=== PATIENT | male | born 1985 | race Caucasian/White ===

== ENCOUNTER 2022-10-12 18:31 | Emergency (ER) | payer OTHER ==
[2022-10-12 18:41] VITALS: TEMP 97.8
--- NOTE | 2022-10-12 19:55 | ED ---
Overdose HPI - General Chief Complaint: Overdose Stated Complaint: AMS Time Seen by Provider: 10/12/22 19:01 Source: patient, EMS, RN notes reviewed Mode of arrival: EMS Limitations: altered mental status - History of Present Illness Initial Comments: 37-year-old male here by EMS from his nursing home house to be evaluated for altered mental status and Ryland's. Patient reportedly took Klonopin unknown exactly how much she also possibly methamphetamine. No fevers chills nausea vomiting sweats no cough reported, reported. MD Complaint: other Review of Systems ROS Statement: Those systems with pertinent positive or pertinent negative responses have been documented in the HPI. ROS Other: All systems not noted in ROS Statement are negative. Limitations: ROS unobtainable due to patients medical condition General Exam - General Exam Comments Initial Comments: This is a well-developed well-nourished awake alert but lethargic male Limitations: altered mental status General appearance: alert, in no apparent distress, lethargic Head exam: Present: atraumatic, normocephalic, normal inspection Eye exam: Present: normal appearance, PERRL, EOMI. Absent: scleral icterus, conjunctival injection, periorbital swelling ENT exam: Present: normal exam, mucous membranes moist Neck exam: Present: normal inspection, full ROM, other. Absent: tenderness, meningismus, lymphadenopathy Respiratory exam: Present: normal lung sounds bilaterally. Absent: respiratory distress, wheezes, rales, rhonchi, stridor Cardiovascular Exam: Present: regular rate, normal rhythm, normal heart sounds. Absent: systolic murmur, diastolic murmur, rubs, gallop, clicks GI/Abdominal exam: Present: soft, normal bowel sounds. Absent: distended, tenderness, guarding, rebound, rigid Extremities exam: Present: normal inspection, full ROM, normal capillary refill. Absent: tenderness, pedal edema, joint swelling, calf tenderness Back exam: Present: normal inspection Neurological exam: Present: alert, oriented X3, CN II-XII intact Psychiatric exam: Present: normal affect, normal mood Skin exam: Present: warm, dry, intact, normal color. Absent: rash Course Vital Signs 10/12/22 18:32 Temperature 97.8 F Pulse Rate 83 Respiratory 18 Rate Blood Pressure 120/85 O2 Sat by Pulse 94 L Oximetry - Reevaluation(s) Reevaluation #1: 10/12/22 22:23 Reevaluation patient reveals he is awake and alert he denies any suicidal thought or ideation Medical Decision Making - Medical Decision Making Patient is awake and alert on my reevaluation. Patient denies any thoughts of harming himself he does admit he actually took some extra medications tonight. Be discharged Was pt. sent in by a medical professional or institution? @ No S paramedics upon arrival-[by , KANU, ROAD MACHINERY INSPECTOR, urgent care, hospital, or residential] Did you speak to anyone other than the patient for history? @ -[EMS, parent, family, police, friend?] Did you review nursing and triage notes? @ Yes I agree-[agree or disagree, why?] Were old charts reviewed? @ No -[outside hosp., previous admissions, EMS record, old EKG, old radiological studies, urgent care reports/EKGs, residential records?] Differential Diagnosis? @ Overdose considered no evidence of trauma-[chest pain, altered mental status abdominal pain women, abdominal pain men, vaginal bleeding, weakness, fever, dyspnea, syncope, headache, dizziness, GI bleed, back pain, seizure] EKG interpreted by me (3pts min.)? @ Yes-[none] X-rays interpreted by me (1pt min.)? @ -[none] CT interpreted by me (1pt min.)? @ -[none] U/S interpreted by me (1pt. min.)? @ -[none] What testing was considered but not performed? (CT, X-rays, U/S, labs)? Why? @ No [CT, X-rays, U/S, labs? Why?] What meds were considered but not given? Why? @ -[none] Did you discuss the management of the patient with other professionals? @ No-[professionals i.e. KANU Hoyt, ROAD MACHINERY INSPECTOR, Lab, RT, Psych Nurse, Manufacturing Intern, Vein Pumper, Teacher, Spinning Machine Operator, egg caser? Give summary] Did you reconcile home meds? @ -[none] Was smoking cessation discussed for >3mins.? @ -[none] Was critical care preformed (if so, how long)? @ -[none] Were there social determinants of health that impacted care today? How? (Home lessness, low income, unemployed, alcoholism, drug addiction, transportation, low edu. Level, literacy, decrease access to med. care, prison, rehab)? @ -[Homelessness, low income, unemployed, alcoholism, drug addiction, transportation, low edu. Level, literacy, decrease access to med. care, prison, rehab?] Was there de-escalation of care discussed even if they declined? (Discuss DNR or withdrawal of care, Hospice)? @ -[Discuss DNR or withdrawal of care, Hospice?] What co-morbidities impacted this encounter? (DM, HTN, Smoking, COPD, CAD, Cancer, CVA, Hep., AIDS, mental health diagnosis, sleep apnea, morbid obesity)? @ -[DM, HTN, Smoking, COPD, CAD, Cancer, CVA, Hep., AIDS, mental health diagnosis, sleep apnea, morbid obesity?] Was patient admitted / discharged? @ Discharged -[hospital course] Undiagnosed new problem with uncertain prognosis? @ -[none] Drug Therapy requiring intensive monitoring for toxicity (Heparin, Nitro, Insulin, Cardizem)? @ -[none] Were any procedures done? @ -[none] Diagnosis/symptom? @ Accidental Medication Overdose-[default] Acute, or Chronic, or Acute on Chronic? @ Acute-[default] Uncomplicated (without systemic symptoms) or Complicated (systemic symptoms)? @ -[default] Side effects of treatment? @ -[none] Exacerbation, Progression, or Severe Exacerbation] @ -[no] Poses a threat to life or bodily function? @ -[no] - Lab Data Result diagrams: 10/12/22 19:41 10/12/22 19:41 Lab Results 10/12/22 10/12/22 10/12/22 Range/Units 19:41 19:41 19:41 WBC 9.5 (3.8-10.6) k/uL RBC 4.16 L (4.30-5.90) m/uL Hgb 12.9 L (13.0-17.5) gm/dL Hct 37.1 L (39.0-53.0) % MCV 89.1 (80.0-100.0) fL MCH 31.1 (25.0-35.0) pg MCHC 34.9 (31.0-37.0) g/dL RDW 13.4 (11.5-15.5) % Plt Count 205 (150-450) k/uL MPV 8.3 Neutrophils % 76 % Lymphocytes % 16 % Monocytes % 5 % Eosinophils % 2 % Basophils % 0 % Neutrophils # 7.2 (1.3-7.7) k/uL Lymphocytes # 1.5 (1.0-4.8) k/uL Monocytes # 0.4 (0-1.0) k/uL Eosinophils # 0.2 (0-0.7) k/uL Basophils # 0.0 (0-0.2) k/uL PT 9.6 (9.0-12.0) sec INR 0.9 (<1.2) Sodium 138 (137-145) mmol/L Potassium 4.3 (3.5-5.1) mmol/L Chloride 105 (98-107) mmol/L Carbon Dioxide 25 (22-30) mmol/L Anion Gap 8 mmol/L BUN 26 H (9-20) mg/dL Creatinine 0.95 (0.66-1.25) mg/dL Est GFR (CKD-EPI)AfAm >90 (>60 ml/min/1.73 sqM) Est GFR (CKD-EPI)NonAf >90 (>60 ml/min/1.73 sqM) Glucose 84 (74-99) mg/dL Plasma Lactic Acid Tirso (0.7-2.0) mmol/L Calcium 8.7 (8.4-10.2) mg/dL Total Bilirubin 1.0 (0.2-1.3) mg/dL AST 107 H (17-59) U/L ALT 35 (4-49) U/L Alkaline Phosphatase 89 (38-126) U/L Troponin I (0.000-0.034) ng/mL Total Protein 6.6 (6.3-8.2) g/dL Albumin 4.0 (3.5-5.0) g/dL Lipase 53 (23-300) U/L Salicylates 2.2 mg/dL Acetaminophen <10.0 ug/mL Serum Alcohol <10 mg/dL 10/12/22 10/12/22 Range/Units 19:41 19:41 WBC (3.8-10.6) k/uL RBC (4.30-5.90) m/uL Hgb (13.0-17.5) gm/dL Hct (39.0-53.0) % MCV (80.0-100.0) fL MCH (25.0-35.0) pg MCHC (31.0-37.0) g/dL RDW (11.5-15.5) % Plt Count (150-450) k/uL MPV Neutrophils % % Lymphocytes % % Monocytes % % Eosinophils % % Basophils % % Neutrophils # (1.3-7.7) k/uL Lymphocytes # (1.0-4.8) k/uL Monocytes # (0-1.0) k/uL Eosinophils # (0-0.7) k/uL Basophils # (0-0.2) k/uL PT (9.0-12.0) sec INR (<1.2) Sodium (137-145) mmol/L Potassium (3.5-5.1) mmol/L Chloride (98-107) mmol/L Carbon Dioxide (22-30) mmol/L Anion Gap mmol/L BUN (9-20) mg/dL Creatinine (0.66-1.25) mg/dL Est GFR (CKD-EPI)AfAm (>60 ml/min/1.73 sqM) Est GFR (CKD-EPI)NonAf (>60 ml/min/1.73 sqM) Glucose (74-99) mg/dL Plasma Lactic Acid Tirso 0.7 (0.7-2.0) mmol/L Calcium (8.4-10.2) mg/dL Total Bilirubin (0.2-1.3) mg/dL AST (17-59) U/L ALT (4-49) U/L Alkaline Phosphatase (38-126) U/L Troponin I <0.012 (0.000-0.034) ng/mL Total Protein (6.3-8.2) g/dL Albumin (3.5-5.0) g/dL Lipase (23-300) U/L Salicylates mg/dL Acetaminophen ug/mL Serum Alcohol mg/dL - EKG Data -: EKG Interpreted by Me EKG Comments: EKG interpreted by me at the time of treatment we'll sinus rhythm a 71 appear interval 144 QRS duration 92 QT since QTC 432/469 moderate voltage criteria for LVH Disposition Clinical Impression: Accidental drug overdose Disposition: HOME SELF-CARE Condition: Good Instructions (If sedation given, give patient instructions): Adult Overdose (ED) Is patient prescribed a controlled substance at d/c from ED?: No Referrals: None,Stated [Primary Care Provider] - 1-2 days Decision Date: 10/12/22 Decision Time: 22:26
[2022-10-12 20:21] LABS: Basophils % (A) 0 %; Eosinophils # (A) 0.2 k/uL (0-0.7); Eosinophils % (A) 2 %; HCT 37.1 % (39.0-53.0); HGB 12.9 gm/dL (13.0-17.5); Lymphocytes # (A) 1.5 k/uL (1.0-4.8); Lymphocytes % (A) 16 %; MCH 31.1 pg (25.0-35.0); MCHC 34.9 g/dL (31.0-37.0); MCV 89.1 fL (80.0-100.0); Mean Platelet Volume 8.3; Monocytes # (A) 0.4 k/uL (0-1.0); Monocytes % (A) 5 %; Neutrophils # (A) 7.2 k/uL (1.3-7.7); Neutrophils % (A) 76 %; Platelet Count 205 k/uL (150-450); RBC 4.16 m/uL (4.30-5.90); RDW 13.4 % (11.5-15.5); WBC 9.5 k/uL (3.8-10.6)
[2022-10-12 20:30] LABS: INR 0.9 (<1.2); Prothrombin Time 9.6 sec (9.0-12.0)
[2022-10-12 20:48] LABS: ALT 35 U/L (4-49); AST 107 U/L (17-59); Acetaminophen <10.0 ug/mL; African American GFR (CKD) >90 (>60 ml/min/1.73 sqM); Alcohol <10 mg/dL; Alkaline Phosphatase 89 U/L (38-126); Anion Gap 8 mmol/L; Blood Urea Nitrogen 26 mg/dL (9-20); Calcium 8.7 mg/dL (8.4-10.2); Carbon Dioxide 25 mmol/L (22-30); Chloride 105 mmol/L (98-107); Glucose 84 mg/dL (74-99); Lipase 53 U/L (23-300); Non-African American GFR(CKD) >90 (>60 ml/min/1.73 sqM); Potassium 4.3 mmol/L (3.5-5.1); Salicylate 2.2 mg/dL; Sodium 138 mmol/L (137-145); Total Protein 6.6 g/dL (6.3-8.2)
[2022-10-12] MEDS ORDERED: LIDOCAINE VISCOUS 2% 15 ML CUP MUCOUS MEM ONE (22:52)
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
[2022-10-12 23:11] VITALS: BP 114/80; PULSE 80; RESP 18
== END 2022-10-12 23:11 | disposition home or self-care (01) ==
LOC: EC 18:31
DX: T65.91XA Toxic effect of unspecified substance, accidental (unintentional), initial encounter (principal)
CPT/HCPCS: 82075; 93005; 80053; 83605; 83690; 84484; 85025; 85610; 80143; 80179; 99284; G0480; 36415; 80320

== ENCOUNTER 2022-11-11 16:52 | Emergency (ER) | payer OTHER ==
--- NOTE | 2022-11-11 17:44 | ED ---
General Adult HPI - General Source: patient, RN notes reviewed Mode of arrival: ambulatory Limitations: no limitations <Pat Grossman - Last Filed: 11/11/22 17:45> - General Source: patient, RN notes reviewed <Vilma Macedo - Last Filed: 11/11/22 20:30> - General Chief complaint: Upper Respiratory Infection Stated complaint: URI,NVD Time Seen by Provider: 11/11/22 17:42 - History of Present Illness Initial comments: Patient is a 37-year-old male who presents with a chief complaint of cough. It started 1 week ago. It is mostly dry with intermittent green phlegm. No improvement. No chest pain or shortness of breath. Today patient felt nauseous with 3 episodes of vomiting, nonbloody. Reports body aches. No fever, chills, other upper respiratory symptoms, abdominal pain, diarrhea. No recent sick contacts. No history of asthma or COPD. Patient quit smoking tobacco 1 week ago. He has a 7.5 pack year history. (Pat Grossman) Patient is a 37-year-old male presenting to the emergency room with complaints of cough and congestion ongoing for approximately 1 week and developed nausea and vomiting today. He states that he has occasional body aches and sweating but denies any known fevers. He denies any chest pain, shortness of breath, abdominal pain, diarrhea, headache, dizziness or other complaints or concerns. He doesn't past medical history significant for hypertension but is not taking any medications on a regular basis. He reports that he has not taken any [id number] medication to treat his symptoms today or in the previous week. (Vilma Macedo) - Related Data Allergies Allergy/AdvReac Type Severity Reaction Status Date / Time No Known Allergies Allergy Verified 11/11/22 16:57 Review of Systems ROS Other: All systems not noted in ROS Statement are negative. <Pat Grossman - Last Filed: 11/11/22 17:45> ROS Other: All systems not noted in ROS Statement are negative. <Vilma Macedo - Last Filed: 11/11/22 20:30> ROS Statement: Those systems with pertinent positive or pertinent negative responses have been documented in the HPI. Past Medical History Past Medical History: Hypertension History of Any Multi-Drug Resistant Organisms: None Reported Past Surgical History: No Surgical Hx Reported Past Psychological History: No Psychological Hx Reported Smoking Status: Current every day smoker Past Alcohol Use History: None Reported Past Drug Use History: None Reported <Pat Grossman - Last Filed: 11/11/22 17:45> General Exam Limitations: no limitations <Gregory Grossmanna - Last Filed: 11/11/22 17:45> <Vilma Macedo - Last Filed: 11/11/22 20:30> - General Exam Comments Initial Comments: GENERAL: No acute distress, well developed, well nourished. HEENT: Normocephalic, atraumatic. Pupils equal, round, reactive to light. Moist mucous membranes. LUNGS: No respiratory distress. Clear to auscultation, no adventitious sounds, no use of accessory muscles. HEART: Regular rate and rhythm without murmur, rub, or gallop. ABDOMEN: Normal bowel sounds. Soft, non-tender, non-distended. BACK: Normal inspection. EXTREMITIES: No edema. No tenderness. Moves all extremities. NEUROLOGIC: Alert & oriented x 3. CN II-XII grossly intact. PSYCHIATRIC: Normal affect and behavior. DERMATOLOGIC: Skin intact, without rashes or lesions noted. (Vilma Macedo) Course Vital Signs 11/11/22 11/11/22 11/11/22 16:54 19:26 19:40 Temperature 98.3 F 97.8 F Pulse Rate 93 91 Respiratory 16 18 18 Rate Blood Pressure 136/93 134/90 O2 Sat by Pulse 98 97 Oximetry Medical Decision Making - Radiology Data Radiology results: report reviewed, image reviewed <Vilma Macedo - Last Filed: 11/11/22 20:30> - Medical Decision Making Was pt. sent in by a medical professional or institution (, PA, PIPEFITTER WELDER, urgent care, hospital, or alf...) When possible be specific @ -No Did you speak to anyone other than the patient for history (EMS, parent, family, police, friend...)? What history was obtained from this source @ -No Did you review nursing and triage notes (agree or disagree)? Why? @ -I reviewed and agree with nursing and triage notes except patient reports symptoms ongoing for approximately 1 week with the addition of nausea and vomiting today. Were old charts reviewed (outside hosp., previous admission, EMS record, old EKG, old radiological studies, urgent care reports/EKG's, alf records)? Report findings @ -No old charts were reviewed Differential Diagnosis (chest pain, altered mental status, abdominal pain women, abdominal pain men, vaginal bleeding, weakness, fever, dyspnea, syncope, headache, dizziness, GI bleed, back pain, seizure, CVA, palpatations, mental health)? @ -Differential Upper respiratory symptoms: Pneumonia, viral URI, bronchitis, otitis, sinusitis, streptococcal pharyngitis, mononucleosis, peritonsillar Abscess, retropharyngeal Abscess, epiglottitis, this is not meant to be an all-inclusive list. EKG interpreted by me (3pts min.). @ -None done X-rays interpreted by me (1pt min.). @ -Chest x-ray 2 view heart size normal, lungs clear no evidence of infiltrates or consolidation. No acute cardiopulmonary process. CT interpreted by me (1pt min.). @ -None done U/S interpreted by me (1pt. min.). @ -None done What testing was considered but not performed or refused? (CT, X-rays, U/S, labs)? Why? @ -None What meds were considered but not given or refused? Why? @ -None Did you discuss the management of the patient with other professionals ( professionals i.e. , PA, PIPEFITTER WELDER, lab, RT, psych nurse, social scientist, cotton tipper, teacher, global safety officer, pillowcase maker)? Give summary @ -No Was smoking cessation discussed for >3mins.? @ -No Was critical care preformed (if so, how long)? @ -No Were there social determinants of health that impacted care today? How? (Homelessness, low income, unemployed, alcoholism, drug addiction, transportation, low edu. Level, literacy, decrease access to med. care, long-term, rehab)? @ -No Was there de-escalation of care discussed even if they declined (Discuss DNR or withdrawal of care, Hospice)? DNR status @ -No What co-morbidities impacted this encounter? (DM, HTN, Smoking, COPD, CAD, Cancer, CVA, ARF, Chemo, Hep., AIDS, mental health diagnosis, sleep apnea, morbid obesity)? @ -Recently quit smoking Was patient admitted / discharged? Hospital course, mention meds given and route, prescriptions, significant lab abnormalities, going to OR and other pertinent info. @ -37-year-old male presenting to the emergency room with cough and congestion ongoing for 1 week and nausea vomiting ongoing for 1 day without known sick exposure. He is hemodynamically stable. No fever, no tachycardia and no tachypnea vital signs within normal limits. Chest x-ray and viral swab for COVID, influenza and RSV ordered by triaging provider. Chest x-ray demonstrates no acute cardiopulmonary disease. No indication for other diagnostic imaging or laboratory studies will await viral swabs. Advised that with the symptoms ongoing for 1 week if negative for viral etiology will give antibiotics. Swab positive for influenza A and RSV. No indication for further diagnostic imaging or laboratory studies. Onset of symptoms greater than 48 hours not a candidate for Tamiflu. Symptomatic management reviewed with patient including the use of decongestants and cough suppressants for cough and congestion along with Tylenol or fever [id number] as needed for fevers or body aches. Advised wll keep off work for 48 hours. Return parameters to the emergency room discussed at length. Questions and concerns answered. Will discharge home in stable condition with symptomatic management for influenza A and RSV. Undiagnosed new problem with uncertain prognosis? @ -No Drug Therapy requiring intensive monitoring for toxicity (Heparin, Nitro, Insulin, Cardizem)? @ -No Were any procedures done? @ -No Diagnosis/symptom? @ -RSV Acute, or Chronic, or Acute on Chronic? @ -Acute Uncomplicated (without systemic symptoms) or Complicated (systemic symptoms)? @ -Uncomplicated Side effects of treatment? @ -No Exacerbation, Progression, or Severe Exacerbation? @ -No Poses a threat to life or bodily function? How? (Chest pain, [place], [place], pneumonia, PE, COPD, DKA, ARF, appy, cholecystitis, CVA, Diverticulitis, Homicidal, Suicidal, threat to staff... and all critical care pts) @ -No Diagnosis/symptom? @ -Influenza A Acute, or Chronic, or Acute on Chronic? @ -Acute Uncomplicated (without systemic symptoms) or Complicated (systemic symptoms)? @ -Uncomplicated Side effects of treatment? @ -none Exacerbation, Progression, or Severe Exacerbation] @ -no Poses a threat to life or bodily function? @ -no Case discussed with Dr. Samayoa. ([facility]) - Lab Data Lab Results 11/11/22 Range/Units 17:45 Influenza Type A (PCR) Detected A (Not Detectd) Influenza Type B (PCR) Not Detected (Not Detectd) RSV (PCR) Detected A (Not Detectd) SARS-CoV-2 (PCR) Not Detected (Not Detectd) Disposition <NgocPat - Last Filed: 11/11/22 17:45> Is patient prescribed a controlled substance at d/c from ED?: No Time of Disposition: 20:21 <Vilma Macedo - Last Filed: 11/11/22 20:30> Clinical Impression: Influenza, Acute upper respiratory infection, RSV (respiratory syncytial virus infection) Disposition: HOME SELF-CARE Condition: Stable Instructions (If sedation given, give patient instructions): Respiratory Syncytial Virus (ED), Influenza (ED), Upper Respiratory Infection (ED) Additional Instructions: Please avoid contact with others if contact is needed please utilize a mask. May return to work in 48 hours if fever free. Good hydration encouraged. Utilize [id number] medications to treat symptoms including decongestants for cough and congestion and Tylenol or ibuprofen for fevers or pain. Please follow-up with your primary care provider. Please return to the Emergency Department if symptoms worsen or any other concerns. Referrals: None,Stated [Primary Care Provider] - 1-2 days
--- NOTE | 2022-11-11 18:34 | XR ---
EXAMINATION TYPE: XR chest 2V DATE OF EXAM: 11/11/2022 COMPARISON: NONE HISTORY: Cough and congestion TECHNIQUE: 2 view FINDINGS: Heart and mediastinum are normal. Lungs are clear. Diaphragm is normal. Bony thorax appears normal. IMPRESSION: Normal chest. No change.
[2022-11-11 19:40] VITALS: BP 134/90; PULSE 91; RESP 18; TEMP 97.8
== END 2022-11-11 20:32 | disposition home or self-care (01) ==
LOC: EC 16:52
DX: J10.1 Influenza due to other identified influenza virus with other respiratory manifestations (principal); B97.4 Respiratory syncytial virus as the cause of diseases classified elsewhere; I10 Essential (primary) hypertension; F17.200 Nicotine dependence, unspecified, uncomplicated; Z20.822 Contact with and (suspected) exposure to COVID-19
CPT/HCPCS: 71046; 87636; 99284

== ENCOUNTER 2023-01-20 19:32 | Emergency (ER) | payer OTHER ==
[2023-01-20 20:22] VITALS: BP 112/66; PULSE 99; RESP 18; TEMP 98.1
--- NOTE | 2023-01-20 22:02 | ED ---
General Adult HPI - General Source: patient Mode of arrival: ambulatory <Carrie Brandt - Last Filed: 01/20/23 22:02> - General Source: patient, RN notes reviewed Mode of arrival: ambulatory Limitations: no limitations <Lisa Charlton - Last Filed: 01/21/23 01:02> - General Chief complaint: Anxiety Stated complaint: abd pain Time Seen by Provider: 01/20/23 21:59 - History of Present Illness Initial comments: 37-year-old male presents emergency Department with chief complaint of increased anxiety. Patient reports that he takes Klonopin and has been out for 4 days. (Carrie Brandt) 37 year-old male presents to the emergency department with chief complaint of increased anxiety and unable to have a bowel movement x4 days. PMH include hypertension and anxiety. He states that this has been going on since he has been out of his Klonopin for 4 days. He states that he has been vomiting. Patient states he has mild abdominal pain with no focal tenderness. (Lisa Charlton) - Related Data Allergies Allergy/AdvReac Type Severity Reaction Status Date / Time No Known Allergies Allergy Verified 01/20/23 20:22 Review of Systems ROS Other: All systems not noted in ROS Statement are negative. <Carrie Brandt - Last Filed: 01/20/23 22:02> ROS Other: All systems not noted in ROS Statement are negative. <Lisa Charlton - Last Filed: 01/21/23 01:02> ROS Statement: Those systems with pertinent positive or pertinent negative responses have been documented in the HPI. Past Medical History Past Medical History: Hypertension History of Any Multi-Drug Resistant Organisms: None Reported Past Surgical History: No Surgical Hx Reported Past Psychological History: No Psychological Hx Reported Smoking Status: Current every day smoker Past Alcohol Use History: None Reported Past Drug Use History: None Reported <Carrie Brandt - Last Filed: 01/20/23 22:02> General Exam <Carrie Brandt - Last Filed: 01/20/23 22:02> General appearance: alert, in no apparent distress Head exam: Present: atraumatic, normocephalic, normal inspection Eye exam: Present: normal appearance, PERRL, EOMI. Absent: scleral icterus, conjunctival injection, periorbital swelling ENT exam: Present: normal exam, mucous membranes dry Respiratory exam: Present: normal lung sounds bilaterally. Absent: respiratory distress, wheezes, rales, rhonchi, stridor Cardiovascular Exam: Present: regular rate, normal rhythm, normal heart sounds. Absent: systolic murmur, diastolic murmur, rubs, gallop, clicks GI/Abdominal exam: Present: soft, normal bowel sounds. Absent: distended, tenderness, guarding, rebound, rigid Neurological exam: Present: alert, oriented X3 Skin exam: Present: warm, dry, intact, normal color. Absent: rash <Lisa Charlton - Last Filed: 01/21/23 01:02> - General Exam Comments Initial Comments: Visual Physical Exam Vital signs reviewed General: Well-appearing, nontoxic, no acute distress. Head: Normocephalic, atraumatic Eyes: PERRLA, EOMI ENT: Airway patent Chest: Nonlabored breathing Skin: No visual rash, normal skin tone Neuro: Alert and oriented 3 Musculoskeletal: No gross abnormalities (Rikki,Carrie) Course Vital Signs 01/20/23 20:19 Temperature 98.1 F Pulse Rate 99 Respiratory 18 Rate Blood Pressure 112/66 O2 Sat by Pulse 98 Oximetry Medical Decision Making <Lisa Charlton - Last Filed: 01/21/23 01:02> - Medical Decision Making Was pt. sent in by a medical professional or institution ([facility], [employer]OD[employer], urgent care, hospital, or snf...) When possible be specific @ -No Did you speak to anyone other than the patient for history (EMS, parent, family, police, friend...)? What history was obtained from this source @ -No Did you review nursing and triage notes (agree or disagree)? Why? @ -I reviewed and agree with nursing and triage notes Were old charts reviewed (outside hosp., previous admission, EMS record, old EKG, old radiological studies, urgent care reports/EKG's, snf records)? Report findings @ -No old charts were reviewed Differential Diagnosis (chest pain, altered mental status, abdominal pain women, abdominal pain men, vaginal bleeding, weakness, fever, dyspnea, syncope, headache, dizziness, GI bleed, back pain, seizure, CVA, palpatations, mental health, musculoskeletal)? @ -Differential Abdominal Pain Men: Appendicitis, cholecystitis, diverticulosis, ischemic bowel, pancreatitis, hepatitis, UTI, gastroenteritis, AAA, incarcerated hernia, bowel obstruction, constipation, inflammatory bowel, hepatitis, peptic ulcer disease, splenic infarction, perforated viscus, testicular torsion, this is not meant to be an all-inclusive list EKG interpreted by me (3pts min.). @ -None X-rays interpreted by me (1pt min.). @ -KUB showed nonobstructive bowel gas pattern CT interpreted by me (1pt min.). @ -None done U/S interpreted by me (1pt. min.). @ -None done What testing was considered but not performed or refused? (CT, X-rays, U/S, labs)? Why? @ -None What meds were considered but not given or refused? Why? @ -None Did you discuss the management of the patient with other professionals (professionals i.e. , PA, COMMODITY BUYER, lab, RT, psych nurse, social media coordinator, slip box changer, teacher, fourth officer, case coordinator)? Give summary @ -No Was smoking cessation discussed for >3mins.? @ -No Was critical care preformed (if so, how long)? @ -No Were there social determinants of health that impacted care today? How? (Homelessness, low income, unemployed, alcoholism, drug addiction, transportation, low edu. Level, literacy, decrease access to med. care, correction, rehab)? @ -No Was there de-escalation of care discussed even if they declined (Discuss DNR or withdrawal of care, Hospice)? DNR status @ -No What co-morbidities impacted this encounter? (DM, HTN, Smoking, COPD, CAD, Cancer, CVA, ARF, Chemo, Hep., AIDS, mental health diagnosis, sleep apnea, morbid obesity)? @ -None Was patient admitted / discharged? Hospital course, mention meds given and route, prescriptions, significant lab abnormalities, going to OR and other pertinent info. @ -discharged. patient presented with constipation and anxiety x4 days. UA obtained which showed dehydration. KUB showed no obstructive pattern. 1L of fluids given. patient discharged in stable condition. Undiagnosed new problem with uncertain prognosis? @ -No Drug Therapy requiring intensive monitoring for toxicity (Heparin, Nitro, Insulin, Cardizem)? @ -No Were any procedures done? @ -No Diagnosis/symptom? @ -constipation Acute, or Chronic, or Acute on Chronic? @ -acute Uncomplicated (without systemic symptoms) or Complicated (systemic symptoms)? @ -uncomplicated Side effects of treatment? @ -No Exacerbation, Progression, or Severe Exacerbation? @ -No Poses a threat to life or bodily function? How? (Chest pain, [place], [place], pneumonia, PE, COPD, DKA, ARF, appy, cholecystitis, CVA, Diverticulitis, Homicidal, Suicidal, threat to staff... and all critical care pts) @ -No Diagnosis/symptom? @ -anxiety Acute, or Chronic, or Acute on Chronic? @ -chronic Uncomplicated (without systemic symptoms) or Complicated (systemic symptoms)? @ -uncomplicated Side effects of treatment? @ -none Exacerbation, Progression, or Severe Exacerbation] @ -no Poses a threat to life or bodily function? @ -no (Lisa Charlton) - Lab Data Lab Results 01/20/23 Range/Units 22:10 Urine Color Yellow Urine Appearance Clear (Clear) Urine pH 5.5 (5.0-8.0) Ur Specific [place] 1.036 H (1.001-1.035) Urine Protein 1+ H (Negative) Urine Glucose (UA) Negative (Negative) Urine Ketones Trace H (Negative) Urine Blood Negative (Negative) Urine Nitrite Negative (Negative) Urine Bilirubin Negative (Negative) Urine Urobilinogen 3.0 (<2.0) mg/dL Ur Leukocyte Esterase Negative (Negative) Urine RBC 1 (0-5) /hpf Urine WBC 3 (0-5) /hpf Ur Squamous Epith Cells 1 (0-4) /hpf Urine Bacteria Rare H (None) /hpf Hyaline Casts 70 H (0-2) /lpf Urine Mucus Many H (None) /hpf Disposition <Carrie Brandt - Last Filed: 01/20/23 22:02> Is patient prescribed a controlled substance at d/c from ED?: No Time of Disposition: 01:02 <Lisa Charlton - Last Filed: 01/21/23 01:02> Clinical Impression: Constipation, Anxiety Disposition: HOME SELF-CARE Condition: Stable Instructions (If sedation given, give patient instructions): Generalized Anxiety Disorder (ED) Additional Instructions: Please return to the Emergency Department if symptoms worsen or any other concerns. Referrals: None,Stated [Primary Care Provider] - 1-2 days
--- NOTE | 2023-01-20 22:10 | XR ---
EXAMINATION TYPE: XR KUB DATE OF EXAM: 01/20/2023 COMPARISON: NONE HISTORY: Pain TECHNIQUE: Single supine KUB image of the abdomen is obtained FINDINGS: Small bowel demonstrates no evidence for dilatation or air fluid levels. Gas and fecal material is seen in non-distended colon. No convincing evidence for pneumoperitoneum. No unusual calcifications. The lung bases are clear. The osseous structures are intact. IMPRESSION: 1. Overall nonobstructive bowel gas pattern.
[2023-01-20 23:32] LABS: Appearance,Urine Clear (Clear); Bacteria,Urine Rare /hpf; Bilirubin,Urine Negative (Negative); Blood,Urine Negative (Negative); Color,Urine Yellow; Glucose,Urine (UA) Negative (Negative); Hyaline Casts,Urine 70 /lpf (0-2); Ketones,Urine Trace (Negative); Leukocyte Esterase,Urine Negative (Negative); Mucus,Urine Many /hpf; Nitrite,Urine Negative (Negative); PH, Urine 5.5 (5.0-8.0); Protein,Urine 1+ (Negative); RBC,Urine 1 /hpf (0-5); Specific Gravity,Urine 1.036 (1.001-1.035); Squamous Epithelial Cell,Urine 1 /hpf (0-4); WBC,Urine 3 /hpf (0-5)
[2023-01-20] MEDS ORDERED: SODIUM CHLORIDE 0.9% 1,000 ML IV ONE (23:34)
== END 2023-01-21 01:22 | disposition home or self-care (01) ==
LOC: EC 19:32
DX: K59.00 Constipation, unspecified (principal); F41.9 Anxiety disorder, unspecified; I10 Essential (primary) hypertension; F17.200 Nicotine dependence, unspecified, uncomplicated
CPT/HCPCS: 74018; 81001; 96360; 99284

== ENCOUNTER 2024-02-26 12:41 | Inpatient (IN) | payer OTHER ==
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
[2024-02-26 13:09] VITALS: BP 127/83; PULSE 80; RESP 16; TEMP 97.3
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
[2024-02-26] MEDS: KETOROLAC 15 MG/ML 1 ML VIAL IVP STA (13:53)
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
[2024-02-26] MEDS: HYDROmorphone 0.5 MG/0.5 ML SYRINGE IVP STA (14:30)
[2024-02-26] MEDS: ALPRAZolam 1 MG TAB PO STA (14:32)
[2024-02-26 14:37] LABS: Basophils % (A) 0 %; Eosinophils # (A) 0.1 k/uL (0-0.7); Eosinophils % (A) 1 %; HCT 43.2 % (39.0-53.0); HGB 13.9 gm/dL (13.0-17.5); Lymphocytes # (A) 1.4 k/uL (1.0-4.8); Lymphocytes % (A) 13 %; MCH 30.8 pg (25.0-35.0); MCHC 32.1 g/dL (31.0-37.0); MCV 95.7 fL (80.0-100.0); Monocytes # (A) 0.3 k/uL (0-1.0); Monocytes % (A) 3 %; Neutrophils # (A) 9.2 k/uL (1.3-7.7); Neutrophils % (A) 83 %; Platelet Count 246 k/uL (150-450); RBC 4.51 m/uL (4.30-5.90); RDW 13.3 % (11.5-15.5); WBC 11.2 k/uL (3.8-10.6)
[2024-02-26 14:38] LABS: ALT 34 U/L (4-49); AST 43 U/L (17-59); African American GFR (CKD) >90 (>60 ml/min/1.73 sqM); Albumin 4.1 g/dL (3.5-5.0); Alcohol <10 mg/dL; Alkaline Phosphatase 81 U/L (38-126); Anion Gap 4 mmol/L; Blood Urea Nitrogen 17 mg/dL (9-20); Calcium 8.9 mg/dL (8.4-10.2); Carbon Dioxide 28 mmol/L (22-30); Chloride 109 mmol/L (98-107); Glucose 92 mg/dL (74-99); Non-African American GFR(CKD) 83 (>60 ml/min/1.73 sqM); Potassium 4.2 mmol/L (3.5-5.1); Sodium 141 mmol/L (137-145); Total Bilirubin 0.5 mg/dL (0.2-1.3); Total Protein 6.7 g/dL (6.3-8.2)
[2024-02-26 15:04] LABS: RBC Morphology Normal
[2024-02-26 15:10] LABS: INR 0.9 (<1.2); Prothrombin Time 9.9 sec (10.0-12.5)
[2024-02-26 15:13] LABS: Partial Thromboplastin Time 21.5 sec (22.0-30.0)
[2024-02-26 15:22] LABS: Amphetamine Screen,Urine Not Detected (NotDetected); Barbiturate Screen,Urine Not Detected (NotDetected); Benzodiazepines Screen,Urine Detected (NotDetected); Cocaine Screen,Urine Not Detected (NotDetected); Methadone Screen, Urine Not Detected (NotDetected); Opiate Screen,Urine Not Detected (NotDetected); Oxycodone Screen, Urine Not Detected (NotDetected); Phencyclidine Screen,Urine Not Detected (NotDetected); Tricyclic Antidepressant,Urine Not Detected (NotDetected); Urn Cannabinoid Scrn Detected (NotDetected)
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
[2024-02-26] MEDS ORDERED: LORazepam 2 MG/ML INJ IV STA (16:17)
[2024-02-26] MEDS: SODIUM CHLORIDE 0.9% 1,000 ML IV ONE (16:50)
[2024-02-26] MEDS ORDERED: GABAPENTIN 300 MG CAP PO PRN (17:08)
[2024-02-26] MEDS ORDERED: ONDANSETRON 4 MG/2 ML VIAL IVP PRN (17:08)
[2024-02-26] MEDS ORDERED: TRANEXAMIC 1,000 MG/100ML-NACL 1,000 MG in SALINE 1 100ML.BAG IVPB PRN (17:08)
[2024-02-26] MEDS ORDERED: CYCLOBENZAPRINE 10 MG TAB PO PRN (17:10)
[2024-02-26] MEDS ORDERED: oxyCODONE-APAP 10-325MG 1 EACH TAB PO PRN (17:10)
[2024-02-26] MEDS: DEXAMETHASONE SOD PHOSPHATE 10 MG/ML 1 ML VIAL IV STA (17:35)
[2024-02-26] MEDS: GABAPENTIN 300 MG CAP PO SCH (17:36)
[2024-02-26] MEDS: HYDROmorphone 1 MG/ML 1 ML SYRINGE IVP PRN (17:39)
[2024-02-26] MEDS ORDERED: DOCUSATE 100 MG CAP PO SCH (21:00)
== END 2024-02-26 18:20 | disposition left against medical advice (07) | DRG 552 ==
LOC: EC 12:41 → 4SSUR 15:31
PROVIDERS: ADMIT Orthopaedic Surgery; ATTEND Orthopaedic Surgery
DX: S12.500A Unspecified displaced fracture of sixth cervical vertebra, initial encounter for closed fracture (principal); M43.12 Spondylolisthesis, cervical region; S12.400A Unspecified displaced fracture of fifth cervical vertebra, initial encounter for closed fracture; M50.222 Other cervical disc displacement at C5-C6 level; Z53.29 Procedure and treatment not carried out because of patient's decision for other reasons; M48.02 Spinal stenosis, cervical region; I10 Essential (primary) hypertension; S80.812A Abrasion, left lower leg, initial encounter; F17.210 Nicotine dependence, cigarettes, uncomplicated; M47.812 Spondylosis without myelopathy or radiculopathy, cervical region; V48.5XXA Car driver injured in noncollision transport accident in traffic accident, initial encounter; Y92.410 Unspecified street and highway as the place of occurrence of the external cause
CPT/HCPCS: 36415; 70450; 72125; 72141; 80053; 80306; 80320; 84484; 85025; 85610; 85730; 93005; 96374; 96375; 99291

== ENCOUNTER 2024-05-05 01:14 | Observation (INO) | payer OTHER ==
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
[2024-05-05] MEDS: SODIUM CHLORIDE 0.9% 1,000 ML IV STA (01:32)
[2024-05-05] MEDS: HALOPERIDOL LACTATE 5 MG/ML 1 ML VIAL IM STA (01:32)
[2024-05-05 01:47] LABS: Basophils % (A) 0 %; Eosinophils # (A) 0.1 k/uL (0-0.7); Eosinophils % (A) 1 %; HCT 40.6 % (39.0-53.0); HGB 13.8 gm/dL (13.0-17.5); Lymphocytes # (A) 1.7 k/uL (1.0-4.8); Lymphocytes % (A) 24 %; MCH 31.4 pg (25.0-35.0); MCHC 34.1 g/dL (31.0-37.0); Mean Platelet Volume 7.7; Monocytes # (A) 0.2 k/uL (0-1.0); Monocytes % (A) 3 %; Neutrophils # (A) 4.9 k/uL (1.3-7.7); Neutrophils % (A) 69 %; Platelet Count 226 k/uL (150-450); RBC 4.41 m/uL (4.30-5.90); RDW 12.9 % (11.5-15.5); WBC 7.1 k/uL (3.8-10.6)
[2024-05-05 02:00] LABS: Cocaine Screen,Urine Not Detected (NotDetected); Phencyclidine Screen,Urine Not Detected (NotDetected)
[2024-05-05 02:01] LABS: Amphetamine Screen,Urine Not Detected (NotDetected); Barbiturate Screen,Urine Not Detected (NotDetected); Benzodiazepines Screen,Urine Detected (NotDetected); Methadone Screen, Urine Not Detected (NotDetected); Opiate Screen,Urine Not Detected (NotDetected); Oxycodone Screen, Urine Not Detected (NotDetected); Tricyclic Antidepressant,Urine Not Detected (NotDetected); Urn Cannabinoid Scrn Detected (NotDetected)
[2024-05-05 02:03] LABS: ALT 46 U/L (4-49); AST 51 U/L (17-59); African American GFR (CKD) >90 (>60 ml/min/1.73 sqM); Albumin 4.6 g/dL (3.5-5.0); Alkaline Phosphatase 79 U/L (38-126); Anion Gap 14 mmol/L; Blood Urea Nitrogen 9 mg/dL (9-20); Carbon Dioxide 20 mmol/L (22-30); Chloride 111 mmol/L (98-107); Glucose 102 mg/dL (74-99); Lipase 487 U/L (23-300); Non-African American GFR(CKD) >90 (>60 ml/min/1.73 sqM); Phosphorus 3.7 mg/dL (2.5-4.5); Potassium 3.7 mmol/L (3.5-5.1); Sodium 145 mmol/L (137-145); Total Bilirubin 0.5 mg/dL (0.2-1.3)
[2024-05-05 02:43] LABS: Alcohol 301 mg/dL
[2024-05-05] MEDS ORDERED: LORazepam 0.5 MG TAB PO PRN (03:33)
[2024-05-05] MEDS ORDERED: ONDANSETRON 4 MG/2 ML VIAL IVP PRN (03:33)
[2024-05-05] MEDS ORDERED: NALOXONE 0.4 MG/ML 1 ML VIAL IV PRN (03:33)
[2024-05-05] MEDS ORDERED: LORazepam 2 MG/ML INJ IV PRN ×2 (03:33)
[2024-05-05] MEDS ORDERED: LORazepam 1 MG TAB PO PRN ×4 (03:33)
--- NOTE | 2024-05-05 04:45 | P.HPIM ---
History of Present Illness H&P Date: 05/05/24 Chief Complaint: Alcohol intoxication 39-year-old male alcohol dependence Patient unable to provide any meaningful history currently he seems to be agitated and 4 point restraints he just received a dose of Haldol he continues to scream and yell seems to be disoriented about his whereabouts Case discussed with ER nursing and ED attending seems like neighbors called police on the patient as he was wondering in the apartment complex where he lives screaming yelling and following he seemed to be intoxicated for which police was notified and he was brought to the hospital for evaluation Patient unable to provide any meaningful history at this time continues to be combative agitated and restless review of systems Unable to obtain due to alcohol intoxication on exam Constitutional: Restless agitated combative in 4-point restraints, abrasion over the right forehead and cheek no active bleeding Patient does not cooperate with exam very agitated and combative using foul language Psychiatric: Alert and disoriented seems to be intoxicated Neuro resisting care moving all 4 extremities strength of right close 4 point restraints Past Medical History Past Medical History: Unable to Obtain, Hypertension History of Any Multi-Drug Resistant Organisms: None Reported Past Surgical History: Unable to Obtain Past Psychological History: No Psychological Hx Reported Smoking Status: Current every day smoker Past Alcohol Use History: None Reported Past Drug Use History: None Reported Medications and Allergies Home Medications Medication Instructions Recorded Confirmed Type ALPRAZolam [Xanax] 1 mg PO BID 02/26/24 02/26/24 History Mirtazapine 45 mg PO HS 02/26/24 02/26/24 History Omeprazole 20 mg PO AC-BRKFST 02/26/24 02/26/24 History SUMAtriptan succinate [Imitrex] 50 mg PO BID PRN 02/26/24 02/26/24 History Venlafaxine HCl [Effexor] 75 mg PO BID 02/26/24 02/26/24 History amLODIPine [Norvasc] 10 mg PO DAILY 02/26/24 02/26/24 History atenoloL [Tenormin] 50 mg PO DAILY 02/26/24 02/26/24 History Allergies Allergy/AdvReac Type Severity Reaction Status Date / Time No Known Allergies Allergy Verified 05/05/24 01:20 Physical Exam Vitals: Vital Signs Temp Pulse Resp BP Pulse Ox 05/05/24 01:20 81 18 152/60 98 05/05/24 01:19 97.5 F L 105 H 17 149/101 97 Intake and Output 05/04/24 05/04/24 05/05/24 14:59 22:59 06:59 Other: Weight 108.862 kg Results CBC & Chem 7: 05/05/24 01:28 05/05/24 01:28 Labs: Abnormal Lab Results - Last 24 Hours (Table) 05/05/24 05/05/24 Range/Units 01:28 01:28 Chloride 111 H (98-107) mmol/L Carbon Dioxide 20 L (22-30) mmol/L Glucose 102 H (74-99) mg/dL Lipase 487 H (23-300) U/L U Benzodiazepines Scrn Detected H (NotDetected) U Marijuana (THC) Screen Detected H (NotDetected) Serum Alcohol 301 H* mg/dL Assessment and Plan Assessment: 39-year-old male with alcohol dependence coming in due to combative behavior agitation and aggressiveness seems to be intoxicated I discussed case with ED doctor and accepted the admission for acute alcohol intoxication with anticipated length of stay less than 2 midnights Acute severe alcohol intoxication and alcohol dependence Monitor for alcohol withdrawal Hold precautions Currently in 4-point restraints due to combative aggressive behavior Patient received Haldol in the ED Continue with Ativan as needed IV push 1 mg as needed every 6 hours Continue with benzodiazepine per CIWA scale for alcohol withdrawal Monitor for alcohol withdrawal symptoms Thiamine 100 mg p.o. daily IV fluid hydration 150 cc/h Blood alcohol level 309 Hypertension uncontrolled Continue with amlodipine Continue to monitor vital signs Blood work overall unremarkable white count 7.1 hemoglobin 13.8 platelet 226 Renal function unremarkable sodium 145 potassium 3.7 BUN 9 creatinine 0.9 GI prophylaxis Protonix 40 mg p.o. daily Full code DVT prophylaxis Lovenox subcu 40 mg daily
[2024-05-05] MEDS: LORazepam 2 MG/ML INJ IV PRN (05:14)
[2024-05-05] MEDS: diphenhydrAMINE 50 MG/ML 1 ML VIAL IVP STA (05:14)
[2024-05-05] MEDS: SODIUM CHLORIDE 0.9% 1,000 ML IV SCH (05:16)
[2024-05-05 07:49] VITALS: RESP 18
[2024-05-05] MEDS: MULTIVITAMINS, THERA 1 EACH TAB PO SCH (09:17)
[2024-05-05] MEDS: amLODIPine 10 MG TAB PO SCH (09:17)
[2024-05-05] MEDS: FOLIC ACID 1 MG TAB PO SCH (09:17)
[2024-05-05] MEDS: PANTOPRAZOLE 40 MG TABLET PO SCH (09:17)
[2024-05-05] MEDS: ENOXAPARIN 40 MG/0.4 ML SYRINGE SQ SCH (09:18)
[2024-05-05] MEDS: ALPRAZolam 1 MG TAB PO SCH (11:47)
[2024-05-05] MEDS: NON FORMULARY DRUG (Buprenorphine Hcl/Naloxone Hcl [Suboxone 8 Mg-2 Mg Sl Film] 1 EACH Fil SUBLINGUAL SCH (11:48)
[2024-05-05 14:01] VITALS: BP 107/64; PULSE 79; TEMP 98
--- NOTE | 2024-05-05 15:46 | P.DS ---
Providers Date of admission: 05/05/24 03:33 Expected date of discharge: 05/05/24 Attending physician: Zabrina Arango MD Consults: 05/05/24 03:33 Consult Physician Routine Consulting Provider: Virgilio Mckeon Consult Reason/Comments: petition Do you want consulting provider notified?: Yes Primary care physician: Stated None Hospital Course: William is a 39-year-old male with a medical history significant for unspecified psych disorder, anxiety, narcotic dependence now on Suboxone and hypertension. He was brought in for significant alcohol intoxication and agitated behavior. He was noted the neighbors called the police when he was found wandering his apartment complex where he lives screaming and yelling. He was found to have an alcohol level of 301 on admission. His UDS was positive for benzos and marijuana. On evaluation this morning, appears to be back to baseline. He is calm and cooperative. He is denying any complaints. He states he rarely drinks and does not remember much of yesterday. He was seen by psychiatry, they have cleared him with outpatient follow-up with his community health provider. I did discuss with RN later on the day, he did not exhibit any signs of withdrawal. He is medically stable for discharge. Advised to follow-up with his [facility]. All questions were answered. Discharge diagnoses 1. Agitated behavior likely secondary to alcohol intoxication, resolved 2. Elevated lipase, no abdominal pain, nonspecific Total discharge time greater than 30 minutes Patient Condition at Discharge: Good Plan - Discharge Summary Discharge Rx Participant: No New Discharge Prescriptions: Continue Mirtazapine 45 mg PO HS Testosterone Cypionate [Depo-Testosterone] 200 mg IM Q14D Acetaminophen [Tylenol 8 Hour] 650 mg PO Q8H PRN PRN Reason: Pain Buprenorphine HCl/Naloxone HCl [Suboxone 8 mg-2 mg Sl Film] 1 film SL BID amLODIPine [Norvasc] 10 mg PO DAILY ALPRAZolam [Xanax] 1 mg PO BID atenoloL 100 mg PO BID Discontinued SUMAtriptan succinate [Imitrex] 50 mg PO BID PRN PRN Reason: Migraine Headache Omeprazole 20 mg PO AC-BRKT Discharge Medication List ALPRAZolam [Xanax] 1 mg PO BID 02/26/24 [History] Mirtazapine 45 mg PO HS 02/26/24 [History] amLODIPine [Norvasc] 10 mg PO DAILY 02/26/24 [History] Acetaminophen [Tylenol 8 Hour] 650 mg PO Q8H PRN 05/05/24 [History] Buprenorphine HCl/Naloxone HCl [Suboxone 8 mg-2 mg Sl Film] 1 film SL BID 05/05/24 [History] Testosterone Cypionate [Depo-Testosterone] 200 mg IM Q14D 05/05/24 [History] atenoloL 100 mg PO BID 05/05/24 [History] Follow up Appointment(s)/Referral(s): None,Stated [Primary Care Provider] - 1-2 days Patient Instructions/Handouts: Alcohol Intoxication (ED) Activity/Diet/Wound Care/Special Instructions: Please follow-up with your community mental health provider within 1 week Please follow-up with your primary care doctor within 1 week It appears alcohol causes you to have aggressive behavior, as you stated you seldom drink you are not at increased risk for alcohol withdrawal therefore I recommend complete cessation of alcohol. If you are regular alcohol user, please obtain community resources for help Discharge Disposition: HOME SELF-CARE
[2024-05-05] MEDS ORDERED: MIRTAZAPINE 45 MG TABLET PO SCH (21:00)
[2024-05-05] MEDS ORDERED: atenoloL 50 MG TAB PO SCH (21:00)
--- NOTE | 2024-05-05 21:43 | P.CN ---
Psychiatric Consult - . Consult date: 05/05/24 Consult:: 05/05/24 21:42 CONSULTATION Reason for consult: Alcohol intoxication identifying Data: The patient is a 38 years old, single white male, who lives in [place], [place] in an apartment. Reason for admission: Impending DTs History of present illness: The patient was to the hospital after police was called by the neighbors. The patient was noted to be aggressive. He was in 4- point restraints in the ER. During this conversation, the patient was calm and cooperative. He indicated that he went to a libertarian and drank too much. He was resisting arrest because he was afraid of police. The patient noted he is not an aggressive person. He denied threatening other or making any self-harm statements. There is no petition in the chart. The nursing staff noted that his blood alcohol was 300+. The patient was on safety precautions. The nurse did not know why the psychiatry is consulted. The patient noted that he has been seeing his PCP and gets Remeron and Effexor. He has been taking these medications for past 3-4 years. He feels stable on these medications. He intends to resume his treatment after discharge at [facility]. He denied feeling depressed. He denied suicidal or Homicidal ideation or plans. On leading questions denied/admitted to depression, anxiety, hopelessness, worthlessness, suicidal or homicidal ideations. The patient denied/admitted to any symptoms of paranoia, or any other delusional thinking, A/V hallucinations. The patients mother corroborated the history. She stated that patient has never attempted suicide or hurt anybody. She denied in-pt psychiatric treatment. She noted that patient ins under stress currently but not depressed and suicidal. Current and past medications: As stated above. Out-pt follow-up: PCP History of past psychiatric illness: The patient once sought out-pt treatment at [facility]. He went for few visits to see a therapist and then stopped. No in-patient treatments. No history of suicidal or homicidal ideations or behavior. Past medical history: None as per patient. Substance abuse history: The patient denied except opioid abuse. He is on Suboxone. Family history of psychiatric disorder: None as per patient. MSE: Alert and attentive Orientation X3. Pleasant and cooperative. Psychomotor activity: Speech: Normal tone, quality, and quantity Mood: Good. Affect: Appropriate SI or HI: None Thought content: Normal Thought process: Normal Perceptual disturbance: Normal Cognition: Intact Judgement and Insight: Intact Diagnosis: H/O depressive disorder. Currently in remission. Plan: All orders given to the nursing staff on the unit. The patient to be taken off suicide precaution. Safety precautions as per attending. Medication recommendations: Reinstate patient home medication. Disposition recommendations: The patient to be referred to [facility] for out-pt follow with 7 days of discharge.
[2024-05-06] MEDS ORDERED: NON FORMULARY DRUG (Omeprazole [Omeprazole] 20 MG Capsule.Dr) PO SCH (07:30)
== END 2024-05-05 16:46 | disposition home or self-care (01) ==
LOC: EC 01:14 → 5NMEDONC 03:33
PROVIDERS: ADMIT Internal Medicine; ATTEND Internal Medicine
DX: F10.229 Alcohol dependence with intoxication, unspecified (principal); Y90.8 Blood alcohol level of 240 mg/100 ml or more; I10 Essential (primary) hypertension; F17.200 Nicotine dependence, unspecified, uncomplicated; R79.89 Other specified abnormal findings of blood chemistry; F41.9 Anxiety disorder, unspecified; F11.20 Opioid dependence, uncomplicated; Z78.1 Physical restraint status; Z79.899 Other long term (current) drug therapy
CPT/HCPCS: 96361; 96372 ×2; 96374; 96375; 99285; 36415; 80053; 83690; 83735; 84100; 85025; 80306; 80320; G0378; J2060; J1200; J1630; J1650